=== PATIENT | female | born 1940 | race Two or more races ===

== ENCOUNTER 2023-10-11 07:39 | Inpatient (IN) | payer OTHER ==
[2023-10-11] MEDS ORDERED: morphine SULFATE 4 MG/ML VIAL ONE (08:49)
[2023-10-11 09:10] LABS: BASO % 0.8 % (0-2.0); EOS % 3.4 % (0-4.5); HEMATOCRIT 36.7 % (32.4-45.2); HEMOGLOBIN 12.7 GM/dL (10.7-15.3); LYMPH % 13.7 % (8-40); MCH 31.1 pg (25.7-33.7); MCHC 34.7 g/dl (32.0-36.0); MEAN CELL VOLUME 89.6 fl (80-96); MEAN PLT VOLUME 7.6 fl (7.5-11.1); MONO % 8.1 % (3.8-10.2); PLATELET COUNT 278 10^3/uL (134-434); RBC 4.09 M/mm3 (3.60-5.2); RDW 15.3 % (11.6-15.6)
[2023-10-11 09:12] LABS: ACTIVATED PTT 29.1 SECONDS (25.2-36.5); INR 1.16 (0.83-1.09); PROTHROMBIN TIME (PATIENT) 13.4 SEC (9.7-13.0)
[2023-10-11] MEDS: morphine CARPU-JECT 4 MG/1 ML DISP.SYRIN IVPUSH ONE (09:17)
[2023-10-11 09:26] LABS: POTASSIUM 4.7 mmol/L (3.5-5.1)
[2023-10-11 09:28] LABS: ALBUMIN 3.3 g/dl (3.4-5.0); BLOOD UREA NITROGEN 33.7 mg/dL (7-18); CALCIUM 9.2 mg/dL (8.5-10.1)
[2023-10-11 09:31] LABS: CREATININE 1.4 mg/dL (0.55-1.3)
[2023-10-11 09:33] LABS: TOT PROT 6.8 g/dl (6.4-8.2)
[2023-10-11] MEDS ORDERED: HEPARIN NA (PORCINE) 5,000 UNITS/ML 1ML VIAL IVPUSH PRN ×2 (11:50)
[2023-10-11] MEDS ORDERED: HEPARIN INFUSION - 25,000 UNITS/500 ML INFUS.BAG IVPB ONE (12:11)
[2023-10-11] MEDS: HEPARIN - 25,000 UNIT in SODIUM CHLORIDE 495 ML IV SCH (12:15)
[2023-10-11] MEDS: HEPARIN INFUSION - 25,000 UNITS/500 ML INFUS.BAG IVPB SCH (12:58)
[2023-10-11] MEDS ORDERED: SACUBITRIL/VALSARTAN 24 MG-26 MG TABLET ONE (21:08)
[2023-10-11] MEDS: SACUBITRIL/VALSARTAN 24 MG-26 MG TABLET PO SCH (21:17)
[2023-10-11] MEDS: INSULIN ASPART SLIDING SCALE (NOVOLOG) 1 VIAL SQ SCH (21:46)
[2023-10-12 02:42] VITALS: BMI 24.1
[2023-10-12] MEDS: FUROSEMIDE 40 MG TABLET (FP) PO SCH (09:25)
[2023-10-12] MEDS: SPIRONOLACTONE 25 MG TABLET PO SCH (09:25)
[2023-10-12 10:30] LABS: BASO % 0.2 % (0-2.0); EOS % 4.8 % (0-4.5); HEMATOCRIT 38.4 % (32.4-45.2); HEMOGLOBIN 12.7 GM/dL (10.7-15.3); LYMPH % 7.5 % (8-40); MCH 30.2 pg (25.7-33.7); MEAN CELL VOLUME 91.5 fl (80-96); MEAN PLT VOLUME 7.9 fl (7.5-11.1); MONO % 2.6 % (3.8-10.2); NEUT % 84.9 % (42.8-82.8); PLATELET COUNT 312 10^3/uL (134-434); RDW 15.5 % (11.6-15.6); WHITE BLOOD COUNT 12.9 K/mm3 (4.0-10.0)
[2023-10-12 10:48] LABS: POTASSIUM 4.4 mmol/L (3.5-5.1)
[2023-10-12 10:52] LABS: BLOOD UREA NITROGEN 37.5 mg/dL (7-18); CALCIUM 8.8 mg/dL (8.5-10.1)
[2023-10-12 10:53] LABS: MAGNESIUM 2.1 mg/dL (1.8-2.4)
[2023-10-12 10:55] LABS: CREATININE 2.1 mg/dL (0.55-1.3); PHOSPHOROUS 3.2 mg/dL (2.5-4.9)
[2023-10-12 10:57] LABS: CHOLESTEROL 89 mg/dL (50-200)
[2023-10-12 10:58] LABS: LDL CHOLESTEROL (ONLY SJRH) 37 mg/dL (5-100)
[2023-10-12 11:01] LABS: HDL CHOLESTEROL 46 mg/dL (40-60)
[2023-10-12] MEDS: SODIUM CHLORIDE 0.45% 1,000 ML IV SCH (16:33)
[2023-10-12] MEDS: morphine SULFATE 4 MG/ML VIAL IVPUSH PRN (22:00)
[2023-10-13 10:42] LABS: HEMATOCRIT 36.3 % (32.4-45.2); HEMOGLOBIN 12.4 GM/dL (10.7-15.3); MCH 30.9 pg (25.7-33.7); MCHC 34.1 g/dl (32.0-36.0); MEAN CELL VOLUME 90.6 fl (80-96); PLATELET COUNT 301 10^3/uL (134-434); RBC 4.01 M/mm3 (3.60-5.2); RDW 15.5 % (11.6-15.6); WHITE BLOOD COUNT 8.6 K/mm3 (4.0-10.0)
[2023-10-13 10:54] LABS: POTASSIUM 4.4 mmol/L (3.5-5.1)
[2023-10-13 11:03] LABS: CALCIUM 9.3 mg/dL (8.5-10.1)
[2023-10-13 11:04] LABS: BLOOD UREA NITROGEN 51.2 mg/dL (7-18)
[2023-10-13 11:06] LABS: CREATININE 3.9 mg/dL (0.55-1.3)
[2023-10-13] MEDS ORDERED: INSULIN ASPART SLIDING SCALE (NOVOLOG) 1 VIAL SQ ONE (11:45)
[2023-10-13] MEDS ORDERED: POTASSIUM CHLORIDE 10 MEQ in SODIUM CHLORIDE 0.45% 1,000 ML IVPB SCH (12:30)
[2023-10-13] MEDS: SODIUM CHLORIDE 0.45% 1,000 ML IV SCH (12:44)
[2023-10-13] MEDS: ACETAMINOPHEN 325 MG TABLET (FP) PO PRN (22:12)
[2023-10-14] MEDS: CLOPIDOGREL BISULFATE 75 MG TABLET (FP) PO SCH (10:37)
[2023-10-14] MEDS: ASPIRIN 81 MG CHEWABLE TABLETS PO SCH (10:37)
[2023-10-14] MEDS ORDERED: LIDOCAINE HCL 1%, 10 MG/ML (20ML VIAL) ONE (12:26)
[2023-10-14] MEDS ORDERED: HEPARIN NA (PORCINE) 5,000 UNITS/ML 1ML VIAL ONE (12:26)
[2023-10-14] MEDS ORDERED: PROPOFOL 40 ML ONE (12:48)
[2023-10-14] MEDS ORDERED: SUCCINYLCHOLINE CHLORIDE 200 MG/10 ML SYRINGE ONE (12:48)
[2023-10-14] MEDS ORDERED: MIDAZOLAM HCL 2 MG/2 ML SINGLE DOSE VIAL ONE (13:15)
[2023-10-14] MEDS ORDERED: ONDANSETRON 4 MG/2 ML VIAL ONE (13:17)
[2023-10-14] MEDS ORDERED: LIDOCAINE HCL/PF 2% SDV 5ML VIAL ONE (13:17)
[2023-10-14] MEDS ORDERED: SEVOFLURANE 250 ML BTL ONE (13:40)
[2023-10-14] MEDS: ceFAZolin 2 GRAM PREMIX BAG IVPB ONE (13:45)
[2023-10-14] MEDS ORDERED: ceFAZolin SODIUM 1 GM VIAL ONE (13:46)
[2023-10-14] MEDS: LIDOCAINE HCL 1%, 10 MG/ML (20ML VIAL) INF ONE ×2 (13:54)
[2023-10-14] MEDS: IOHEXOL 300 MG/ML INFUS..BTL IV ONE (13:55)
[2023-10-14] MEDS ORDERED: ONDANSETRON 4 MG/2 ML VIAL IVPUSH PRN ×2 (15:06→15:54)
[2023-10-14] MEDS: SODIUM CHLORIDE 1,000 ML IV SCH ×2 (15:56→16:15)
[2023-10-14] MEDS: INSULIN ASPART SLIDING SCALE (NOVOLOG) 1 VIAL SQ SCH (17:21)
[2023-10-14] MEDS: CLOPIDOGREL BISULFATE 75 MG TABLET (FP) PO ONE (17:21)
[2023-10-14] MEDS ORDERED: INSULIN ASPART SLIDING SCALE (NOVOLOG) 1 VIAL SQ ONE (17:34)
[2023-10-14] MEDS: SACUBITRIL/VALSARTAN 24 MG-26 MG TABLET PO SCH (21:18)
[2023-10-15] MEDS: morphine SULFATE 4 MG/ML VIAL IVPUSH PRN (02:12)
[2023-10-15] MEDS: ACETAMINOPHEN 325 MG TABLET (FP) PO PRN (06:03)
[2023-10-15] MEDS: SPIRONOLACTONE 25 MG TABLET PO SCH (10:24)
[2023-10-15] MEDS: ASPIRIN 81 MG CHEWABLE TABLETS PO SCH (10:24)
[2023-10-15] MEDS: CLOPIDOGREL BISULFATE 75 MG TABLET (FP) PO SCH (10:24)
[2023-10-15] MEDS: metoPROLOL SUCCINATE 25 MG TAB.SR.24H (FP) PO SCH (10:24)
[2023-10-15] MEDS: FUROSEMIDE 40 MG TABLET (FP) PO SCH (10:24)
[2023-10-15 11:34] LABS: POTASSIUM 4.4 mmol/L (3.5-5.1)
[2023-10-15 11:36] LABS: CALCIUM 8.4 mg/dL (8.5-10.1)
[2023-10-15 11:37] LABS: ALBUMIN 2.8 g/dl (3.4-5.0); BLOOD UREA NITROGEN 55.9 mg/dL (7-18)
[2023-10-15 11:40] LABS: CREATININE 3.3 mg/dL (0.55-1.3)
[2023-10-15 11:41] LABS: BILIRUBIN,TOTAL 0.9 mg/dL (0.2-1); TOT PROT 5.8 g/dl (6.4-8.2)
[2023-10-15] MEDS: DOCUSATE SODIUM 100 MG CAPSULE (FP) PO SCH (21:45)
[2023-10-15] MEDS: oxyCODONE HCL 5 MG TABLET PO PRN (22:00)
[2023-10-17] MEDS: diphenhydrAMINE HCL 25 MG CAPSULE (FP) PO PRN (09:38)
[2023-10-18 11:18] LABS: HEMOGLOBIN 11.5 GM/dL (10.7-15.3); MCH 31.6 pg (25.7-33.7); MCHC 34.9 g/dl (32.0-36.0); MEAN CELL VOLUME 90.6 fl (80-96); MEAN PLT VOLUME 6.7 fl (7.5-11.1); PLATELET COUNT 324 10^3/uL (134-434); RBC 3.64 M/mm3 (3.60-5.2); RDW 15.9 % (11.6-15.6); WHITE BLOOD COUNT 6.8 K/mm3 (4.0-10.0)
[2023-10-18 11:57] LABS: POTASSIUM 4.7 mmol/L (3.5-5.1)
[2023-10-18 12:01] LABS: BLOOD UREA NITROGEN 38.1 mg/dL (7-18); CALCIUM 8.7 mg/dL (8.5-10.1)
[2023-10-18 12:02] LABS: ALBUMIN 2.7 g/dl (3.4-5.0)
[2023-10-18 12:03] LABS: CREATININE 2.1 mg/dL (0.55-1.3)
[2023-10-18 12:05] LABS: BILIRUBIN,TOTAL 0.8 mg/dL (0.2-1); TOT PROT 6.5 g/dl (6.4-8.2)
[2023-10-18 19:34] VITALS: RESP 18
[2023-10-19] MEDS: APIXABAN 2.5 MG TABLET PO SCH (09:57)
[2023-10-19] MEDS: POLYETHYLENE GLYCOL (HEALTHYLAX) 3350 17 GM PACKET PO SCH (13:48)
[2023-10-20 10:21] LABS: POTASSIUM 4.7 mmol/L (3.5-5.1)
[2023-10-20 10:36] LABS: ALBUMIN 2.8 g/dl (3.4-5.0); CALCIUM 8.7 mg/dL (8.5-10.1)
[2023-10-20 10:39] LABS: CREATININE 1.8 mg/dL (0.55-1.3)
[2023-10-20 10:42] LABS: BILIRUBIN,TOTAL 0.7 mg/dL (0.2-1); TOT PROT 6.2 g/dl (6.4-8.2)
[2023-10-20] MEDS: traMADol HCL 50 MG TABLET PO PRN (17:00)
[2023-10-20] MEDS ORDERED: INSULIN ASPART SLIDING SCALE (NOVOLOG) 1 VIAL SQ ONE (18:01)
[2023-10-21 09:26] VITALS: BP 113/61; PULSE 63; TEMP 98.1
== END 2023-10-21 13:31 | disposition home health service (06) | DRG 253 ==
LOC: JER 07:39 → JERBED 13:24 → OBSVTOIN 14:56 → J6S 10-12 01:50
PROVIDERS: ADMIT Internal Medicine; ATTEND Internal Medicine
PROC: 047K3DZ Dilation of Right Femoral Artery with Intraluminal Device, Percutaneous Approach (ICD-10-PCS; principal; 2023-10-11)
PROC: 047T3DZ Dilation of Right Peroneal Artery with Intraluminal Device, Percutaneous Approach (ICD-10-PCS; 2023-10-11)
PROC: B40DYZZ Plain Radiography of Aorta and Bilateral Lower Extremity Arteries using Other Contrast (ICD-10-PCS; 2023-10-11)
PROC: B40FYZZ Plain Radiography of Right Lower Extremity Arteries using Other Contrast (ICD-10-PCS; 2023-10-11)
DX: E11.51 Type 2 diabetes mellitus with diabetic peripheral angiopathy without gangrene (principal); I70.221 Atherosclerosis of native arteries of extremities with rest pain, right leg; I13.0 Hypertensive heart and chronic kidney disease with heart failure and stage 1 through stage 4 chronic kidney disease, or unspecified chronic kidney disease; I50.22 Chronic systolic (congestive) heart failure; N17.9 Acute kidney failure, unspecified; I25.10 Atherosclerotic heart disease of native coronary artery without angina pectoris; E11.22 Type 2 diabetes mellitus with diabetic chronic kidney disease; N18.30 Chronic kidney disease, stage 3 unspecified; I70.1 Atherosclerosis of renal artery; Z95.5 Presence of coronary angioplasty implant and graft
CPT/HCPCS: 36415; 73630-TC-RT-FY; 73706-TC-RT; 76000-TC-FY; 80048; 80053; 80061; 82962; 83036; 83605; 83735; 84100; 84443; 85025; 85027; 85610; 85730; 93005; 93010; 94760; 97116-GP; 97162-GP; 99285-25; C1725; C1876; G0378; J1644

== ENCOUNTER 2024-03-03 17:09 | Inpatient (IN) | payer OTHER ==
[2024-03-03] MEDS ORDERED: ACETAMINOPHEN INJECTION 100 ML IVPB ONE (18:20)
[2024-03-03] MEDS: ACETAMINOPHEN 1000 MG/100 ML BAG IVPB ONE (18:22)
[2024-03-03 18:27] LABS: BASO % 1.5 % (0-2.0); EOS % 5.3 % (0-4.5); HEMATOCRIT 30.9 % (32.4-45.2); HEMOGLOBIN 10.3 GM/dL (10.7-15.3); LYMPH % 18.5 % (8-40); MCH 31.3 pg (25.7-33.7); MCHC 33.5 g/dl (32.0-36.0); MEAN CELL VOLUME 93.4 fl (80-96); MEAN PLT VOLUME 7.3 fl (7.5-11.1); MONO % 9.5 % (3.8-10.2); NEUT % 65.2 % (42.8-82.8); PLATELET COUNT 272 10^3/uL (134-434); RBC 3.31 M/mm3 (3.60-5.2); RDW 13.6 % (11.6-15.6)
[2024-03-03 18:33] LABS: INR 1.32 (0.83-1.09); PROTHROMBIN TIME (PATIENT) 14.8 SEC (9.7-13.0)
[2024-03-03 18:36] LABS: ACTIVATED PTT 27.4 SECONDS (25.2-36.5)
[2024-03-03 18:51] LABS: POTASSIUM 5.5 mmol/L (3.5-5.1)
[2024-03-03 18:53] LABS: ALBUMIN 3.6 g/dl (3.4-5.0); BLOOD UREA NITROGEN 42.2 mg/dL (7-18); CALCIUM 9.3 mg/dL (8.5-10.1)
[2024-03-03 18:57] LABS: CREATININE 1.2 mg/dL (0.55-1.3)
[2024-03-03 18:58] LABS: BILIRUBIN,TOTAL 1.3 mg/dL (0.2-1); TOT PROT 6.9 g/dl (6.4-8.2)
[2024-03-03] MEDS ORDERED: morphine SULFATE 4 MG/ML VIAL ONE (19:38)
[2024-03-03] MEDS: morphine CARPU-JECT 4 MG/1 ML DISP.SYRIN IVPUSH ONE (19:58)
[2024-03-03 20:32] LABS: POTASSIUM 4.6 mmol/L (3.5-5.1)
[2024-03-03 20:34] LABS: BLOOD UREA NITROGEN 39.5 mg/dL (7-18); CALCIUM 8.9 mg/dL (8.5-10.1)
[2024-03-03 20:38] LABS: CREATININE 1.1 mg/dL (0.55-1.3)
[2024-03-03] MEDS ORDERED: ACETAMINOPHEN 325 MG TABLET (FP) PO PRN (21:37)
[2024-03-03] MEDS ORDERED: DOCUSATE SODIUM 100 MG CAPSULE (FP) PO PRN (21:37)
[2024-03-04] MEDS ORDERED: ACETAMINOPHEN INJECTION 100 ML IVPB ONE (01:44)
[2024-03-04] MEDS ORDERED: INSULIN ASPART SLIDING SCALE (NOVOLOG) 1 VIAL SQ ONE ×2 (01:46→17:17)
[2024-03-04] MEDS: INSULIN ASPART SLIDING SCALE (NOVOLOG) 1 VIAL SQ SCH (02:04)
[2024-03-04] MEDS: DEXTROSE 5%-0.45% SALINE 1,000 ML IV SCH (02:06)
[2024-03-04] MEDS: ACETAMINOPHEN 1000 MG/100 ML BAG IVPB PRN (02:13)
[2024-03-04 04:00] LABS: POTASSIUM 4.8 mmol/L (3.5-5.1)
[2024-03-04 04:01] LABS: CALCIUM 8.9 mg/dL (8.5-10.1)
[2024-03-04 04:02] LABS: BLOOD UREA NITROGEN 39.4 mg/dL (7-18)
[2024-03-04 04:05] LABS: CREATININE 1.3 mg/dL (0.55-1.3)
[2024-03-04 06:13] LABS: BASO % 0.9 % (0-2.0); EOS % 6.8 % (0-4.5); HEMATOCRIT 28.4 % (32.4-45.2); HEMOGLOBIN 9.6 GM/dL (10.7-15.3); LYMPH % 23.7 % (8-40); MCH 31.9 pg (25.7-33.7); MCHC 33.8 g/dl (32.0-36.0); MEAN CELL VOLUME 94.3 fl (80-96); MEAN PLT VOLUME 7.3 fl (7.5-11.1); MONO % 12.4 % (3.8-10.2); NEUT % 56.2 % (42.8-82.8); PLATELET COUNT 238 10^3/uL (134-434); RBC 3.02 M/mm3 (3.60-5.2); RDW 13.4 % (11.6-15.6); WHITE BLOOD COUNT 6.6 K/mm3 (4.0-10.0)
[2024-03-04 06:25] LABS: POTASSIUM 4.2 mmol/L (3.5-5.1)
[2024-03-04 06:28] LABS: CALCIUM 8.4 mg/dL (8.5-10.1)
[2024-03-04 06:31] LABS: CREATININE 1.2 mg/dL (0.55-1.3)
[2024-03-04 08:26] VITALS: BMI 25.3
[2024-03-04] MEDS: ACETAMINOPHEN 325 MG TABLET (FP) PO PRN (20:25)
[2024-03-05] MEDS ORDERED: ACETAMINOPHEN 325 MG TABLET (FP) PO PRN (00:01)
[2024-03-05 08:33] LABS: EOS % 6.7 % (0-4.5); HEMATOCRIT 28.8 % (32.4-45.2); HEMOGLOBIN 9.9 GM/dL (10.7-15.3); LYMPH % 21.1 % (8-40); MCH 31.9 pg (25.7-33.7); MCHC 34.4 g/dl (32.0-36.0); MEAN CELL VOLUME 92.7 fl (80-96); MEAN PLT VOLUME 7.3 fl (7.5-11.1); MONO % 10.4 % (3.8-10.2); NEUT % 60.8 % (42.8-82.8); PLATELET COUNT 264 10^3/uL (134-434); RBC 3.11 M/mm3 (3.60-5.2); RDW 13.1 % (11.6-15.6); WHITE BLOOD COUNT 6.7 K/mm3 (4.0-10.0)
[2024-03-05 08:39] LABS: POTASSIUM 4.4 mmol/L (3.5-5.1)
[2024-03-05 09:05] LABS: BLOOD UREA NITROGEN 33.2 mg/dL (7-18)
[2024-03-05 09:06] LABS: CALCIUM 8.7 mg/dL (8.5-10.1)
[2024-03-05 09:07] LABS: ALBUMIN 3.3 g/dl (3.4-5.0)
[2024-03-05 09:09] LABS: BILIRUBIN,TOTAL 1.6 mg/dL (0.2-1)
[2024-03-05 09:10] LABS: CREATININE 1.2 mg/dL (0.55-1.3)
[2024-03-05 09:11] LABS: TOT PROT 6.1 g/dl (6.4-8.2)
[2024-03-05] MEDS: SACUBITRIL/VALSARTAN 24 MG-26 MG TABLET PO SCH (10:54)
[2024-03-05] MEDS: ASPIRIN 81 MG CHEWABLE TABLETS PO SCH (10:58)
[2024-03-05] MEDS ORDERED: INSULIN ASPART SLIDING SCALE (NOVOLOG) 1 VIAL SQ ONE (18:23)
[2024-03-05] MEDS: ATORVASTATIN CA 80 MG TABLET (FP) PO SCH (21:15)
[2024-03-05] MEDS: EZETIMIBE 10 MG TABLET (FP) PO SCH (21:15)
[2024-03-06] MEDS: diphenhydrAMINE HCL 25 MG CAPSULE (FP) PO ONE (04:12)
[2024-03-06] MEDS: methylPREDNISolone NA SUCC 40 MG/1 ML VIAL IVPUSH SCH (09:58)
[2024-03-07] MEDS: glyBURIDE 2.5 MG TABLET PO ONE (10:21)
[2024-03-07] MEDS: EMPAGLIFLOZIN (JARDIANCE) 10 MG TABLET PO SCH (10:22)
[2024-03-07] MEDS: RIVAROXABAN 2.5 MG TABLET PO SCH (22:28)
[2024-03-07] MEDS: diphenhydrAMINE HCL 25 MG CAPSULE (FP) PO ONE (22:31)
[2024-03-07 23:25] VITALS: RESP 17
[2024-03-07] MEDS: SODIUM CHLORIDE NASAL SPRAY 44 ML BOTTLE NS PRN (23:56)
[2024-03-08] MEDS: glyBURIDE 2.5 MG TABLET PO SCH (06:42)
[2024-03-08 07:05] VITALS: BP 179/72; PULSE 69; TEMP 95.5
[2024-03-08] MEDS: EMPAGLIFLOZIN (JARDIANCE) 25 MG TABLET PO SCH (13:30)
== END 2024-03-08 14:58 | disposition home health service (06) | DRG 300 ==
LOC: JER 17:09 → JERBED 21:39 → J5S 03-04 06:53
PROVIDERS: ADMIT Internal Medicine; ATTEND Family Medicine
DX: I73.9 Peripheral vascular disease, unspecified (principal); I13.0 Hypertensive heart and chronic kidney disease with heart failure and stage 1 through stage 4 chronic kidney disease, or unspecified chronic kidney disease; I50.22 Chronic systolic (congestive) heart failure; N18.4 Chronic kidney disease, stage 4 (severe); I25.10 Atherosclerotic heart disease of native coronary artery without angina pectoris; E11.9 Type 2 diabetes mellitus without complications; E78.5 Hyperlipidemia, unspecified; T78.40XA Allergy, unspecified, initial encounter; Y92.89 Other specified places as the place of occurrence of the external cause
CPT/HCPCS: 36415; 71046-TC-FY; 75635-TC; 80048; 80053; 80061; 82272; 82607; 82728; 82962; 83036; 83540; 83550; 83735; 84443; 85025; 85610; 85730; 86850; 86900; 86901; 93005; 93010; 99285-25; J0131; Q9967

== ENCOUNTER 2024-04-28 14:48 | Inpatient (IN) | payer OTHER ==
[2024-04-28] MEDS ORDERED: PIPERACILLIN/TAZOB 4.5 GM 4.5 GM/100 ML BAG IVPB ONE (17:30)
[2024-04-28] MEDS ORDERED: KETOROLAC TROMETHAMINE 15 MG/ML VIAL ONE (17:30)
[2024-04-28] MEDS ORDERED: VANCOMYCIN 1 GRAM (PRE-DOCKED) 1,000 MG/250 ML BAG IVPB ONE ×2 (17:31→19:06)
[2024-04-28] MEDS ORDERED: HYDROmorphone HCL CARPU-JECT 2 MG/1 ML DISP.SYRIN ONE (17:55)
[2024-04-28] MEDS: HYDROmorphone HCl 2 MG/ML VIAL IVPUSH ONE (18:05)
[2024-04-28] MEDS: KETOROLAC TROMETHAMINE 15 MG/ML VIAL IVPUSH ONE (18:05)
[2024-04-28] MEDS: PIPERACILLIN/TAZOB 4.5 GM 4.5 GM in DEXTROSE 5%-WATER 100 ML IVPB ONE (18:06)
[2024-04-28] MEDS: VANCOMYCIN 1,000 MG in DEXTROSE 5%-WATER - 250 ML IVPB ONE (19:15)
[2024-04-28] MEDS: ACETAMINOPHEN 1000 MG/100 ML BAG IVPB ONE (19:16)
[2024-04-28 20:43] LABS: BASO % 1.2 % (0-2.0); EOS % 3.8 % (0-4.5); HEMATOCRIT 31.5 % (32.4-45.2); HEMOGLOBIN 10.6 GM/dL (10.7-15.3); LYMPH % 22.8 % (8-40); MCH 31.4 pg (25.7-33.7); MCHC 33.8 g/dl (32.0-36.0); MEAN PLT VOLUME 8.5 fl (7.5-11.1); MONO % 8.9 % (3.8-10.2); NEUT % 63.3 % (42.8-82.8); PLATELET COUNT 308 10^3/uL (134-434); RBC 3.39 M/mm3 (3.60-5.2); RDW 13.5 % (11.6-15.6); WHITE BLOOD COUNT 7.5 K/mm3 (4.0-10.0)
[2024-04-28 21:11] LABS: URIC ACID 4.1 mg/dL (2.6-7.2)
[2024-04-28 21:14] LABS: CHLORIDE 106 mmol/L (98-107); SODIUM 135 mmol/L (136-145)
[2024-04-28 21:17] LABS: ALBUMIN 3.4 g/dl (3.4-5.0); CALCIUM 8.8 mg/dL (8.5-10.1)
[2024-04-28 21:18] LABS: BLOOD UREA NITROGEN 42.7 mg/dL (7-18); CO2 22 mmol/L (21-32); GLUCOSE,RANDOM 156 mg/dL (74-106)
[2024-04-28 21:18] LABS: CHLORIDE 105 mmol/L (98-107); POTASSIUM 4.6 mmol/L (3.5-5.1); SODIUM 136 mmol/L (136-145)
[2024-04-28 21:20] LABS: ANION GAP 7 mmol/L (4-13); POTASSIUM 8.3 mmol/L (3.5-5.1)
[2024-04-28 21:20] LABS: CALCIUM 8.5 mg/dL (8.5-10.1)
[2024-04-28 21:21] LABS: ALBUMIN 3.3 g/dl (3.4-5.0); ANION GAP 9 mmol/L (4-13); BLOOD UREA NITROGEN 41.9 mg/dL (7-18); CO2 22 mmol/L (21-32); GLUCOSE,RANDOM 268 mg/dL (74-106)
[2024-04-28 21:21] LABS: CREATININE 1.4 mg/dL (0.55-1.3); SGOT/AST 108 U/L (15-37); SGPT/ALT 34 U/L (13-61)
[2024-04-28 21:22] LABS: BILIRUBIN,TOTAL 0.8 mg/dL (0.2-1); TOT PROT 7.5 g/dl (6.4-8.2)
[2024-04-28 21:23] LABS: URIC ACID 4.1 mg/dL (2.6-7.2)
[2024-04-28 21:24] LABS: CREATININE 1.5 mg/dL (0.55-1.3); SGOT/AST 52 U/L (15-37); SGPT/ALT 44 U/L (13-61)
[2024-04-28 21:24] LABS: ALK PHOS 78 U/L (45-117)
[2024-04-28 21:25] LABS: BILIRUBIN,TOTAL 0.8 mg/dL (0.2-1); TOT PROT 6.5 g/dl (6.4-8.2)
[2024-04-28 21:26] LABS: ALK PHOS 81 U/L (45-117)
[2024-04-28] MEDS: ACETAMINOPHEN 325 MG TABLET (FP) PO PRN (23:49)
[2024-04-29 08:39] VITALS: RESP 18
[2024-04-29 09:07] LABS: INR 1.2 (0.83-1.09); PROTHROMBIN TIME (PATIENT) 13.7 SEC (9.7-13.0)
[2024-04-29 09:10] LABS: ACTIVATED PTT 31.6 SECONDS (25.2-36.5); BASO % 0.8 % (0-2.0); EOS % 5.1 % (0-4.5); HEMATOCRIT 30.6 % (32.4-45.2); HEMOGLOBIN 10.6 GM/dL (10.7-15.3); MCH 31.7 pg (25.7-33.7); MCHC 34.6 g/dl (32.0-36.0); MEAN CELL VOLUME 91.6 fl (80-96); MEAN PLT VOLUME 7.7 fl (7.5-11.1); MONO % 8.3 % (3.8-10.2); NEUT % 69.8 % (42.8-82.8); PLATELET COUNT 261 10^3/uL (134-434); RBC 3.34 M/mm3 (3.60-5.2); RDW 13.1 % (11.6-15.6); WHITE BLOOD COUNT 6.2 K/mm3 (4.0-10.0)
[2024-04-29 09:36] LABS: BLOOD UREA NITROGEN 38.2 mg/dL (7-18)
[2024-04-29 09:37] LABS: CALCIUM 8.9 mg/dL (8.5-10.1)
[2024-04-29 09:38] LABS: CREATININE 1.4 mg/dL (0.55-1.3)
[2024-04-29] MEDS: SACUBITRIL/VALSARTAN 24 MG-26 MG TABLET PO SCH (09:46)
[2024-04-29] MEDS: ASPIRIN 81 MG CHEWABLE TABLETS PO SCH (09:46)
[2024-04-29] MEDS: RIVAROXABAN 2.5 MG TABLET PO SCH (09:46)
[2024-04-29] MEDS: glyBURIDE 2.5 MG TABLET PO SCH (09:47)
[2024-04-29] MEDS: EMPAGLIFLOZIN (JARDIANCE) 25 MG TABLET PO SCH (09:47)
[2024-04-29 09:49] LABS: ERYTHROCYTE SEDIMENTATION RATE 33 mm/hr (0-30)
[2024-04-29] MEDS: INSULIN ASPART SLIDING SCALE (NOVOLOG) 1 VIAL SQ SCH (11:50)
[2024-04-29] MEDS: IRON SUCROSE INJECTION 200 MG in SODIUM CHLORIDE 100 ML IVPB ONE (14:53)
[2024-04-29] MEDS ORDERED: VANCOMYCIN 750 MG in DEXTROSE 5%-WATER - 150 ML IVPB SCH (19:00)
[2024-04-29] MEDS ORDERED: VANCOMYCIN/WATER FOR INJ (PEG) 750 MG/150 ML BAG IVPB SCH (19:00)
[2024-04-29] MEDS: ATORVASTATIN CA 80 MG TABLET (FP) PO SCH (21:44)
[2024-04-29] MEDS: EZETIMIBE 10 MG TABLET (FP) PO SCH (21:45)
[2024-04-29 21:52] VITALS: BMI 25.3
[2024-04-30 01:14] LABS: EPI CELLS 8 /uL (0-25.1); HYALINE CASTS 0 /uL (0-3.1); PH,URINE 5.5 (5.0-8.0); URINE APPEARANCE CLEAR; URINE BACTERIA 4 /uL (0-1359); URINE BILIRUBIN NEGATIVE (NEGATIVE); URINE COLOR YELLOW; URINE GLUCOSE (UA) 3+ (NEGATIVE); URINE KETONE NEGATIVE (NEGATIVE); URINE LEUK ESTERASE NEGATIVE (NEGATIVE); URINE NITRITE NEGATIVE (NEGATIVE); URINE PROTEIN 1+ (NEGATIVE); URINE RBC 9 /uL (0-23.9); URINE UROBILINOGEN 0.2 mg/dL (0.2-1.0); URINE WBC 35 /uL (0-25.8)
[2024-04-30 08:16] LABS: HEMATOCRIT 30.6 % (32.4-45.2); HEMOGLOBIN 10.3 GM/dL (10.7-15.3); MCH 31.2 pg (25.7-33.7); MCHC 33.8 g/dl (32.0-36.0); MEAN CELL VOLUME 92.5 fl (80-96); MEAN PLT VOLUME 7.4 fl (7.5-11.1); PLATELET COUNT 273 10^3/uL (134-434); RBC 3.31 M/mm3 (3.60-5.2); WHITE BLOOD COUNT 4.5 K/mm3 (4.0-10.0)
[2024-04-30 08:17] LABS: POTASSIUM 4.3 mmol/L (3.5-5.1)
[2024-04-30 08:20] LABS: ALBUMIN 3.2 g/dl (3.4-5.0)
[2024-04-30 08:21] LABS: BLOOD UREA NITROGEN 36.8 mg/dL (7-18); CALCIUM 8.9 mg/dL (8.5-10.1)
[2024-04-30 08:23] LABS: CREATININE 1.2 mg/dL (0.55-1.3)
[2024-04-30 08:24] LABS: BILIRUBIN,TOTAL 1.1 mg/dL (0.2-1)
[2024-04-30 08:26] LABS: TOT PROT 6.1 g/dl (6.4-8.2)
[2024-05-01] MEDS: sitaGLIPtin PHOSPHATE 50 MG TABLET PO SCH (06:05)
[2024-05-01] MEDS: GENTAMICIN SO4 0.1% TOPICAL OINTMENT 15 GM/TUBE TUBE TP ONE (21:41)
[2024-05-02 09:56] LABS: BASO % 1.6 % (0-2.0); EOS % 4.8 % (0-4.5); HEMATOCRIT 31.7 % (32.4-45.2); HEMOGLOBIN 10.6 GM/dL (10.7-15.3); LYMPH % 24.7 % (8-40); MCH 31.3 pg (25.7-33.7); MCHC 33.5 g/dl (32.0-36.0); MEAN CELL VOLUME 93.4 fl (80-96); MEAN PLT VOLUME 7.8 fl (7.5-11.1); MONO % 8.3 % (3.8-10.2); NEUT % 60.6 % (42.8-82.8); PLATELET COUNT 298 10^3/uL (134-434); WHITE BLOOD COUNT 5.3 K/mm3 (4.0-10.0)
[2024-05-02 10:13] LABS: POTASSIUM 4.7 mmol/L (3.5-5.1)
[2024-05-02 10:20] LABS: ALBUMIN 3.2 g/dl (3.4-5.0); BLOOD UREA NITROGEN 39.6 mg/dL (7-18); CALCIUM 8.8 mg/dL (8.5-10.1)
[2024-05-02 10:24] LABS: CREATININE 1.3 mg/dL (0.55-1.3)
[2024-05-02 10:26] LABS: TOT PROT 6.4 g/dl (6.4-8.2)
[2024-05-02 12:29] VITALS: BP 125/64; PULSE 62; TEMP 97.9
== END 2024-05-02 13:22 | disposition home or self-care (01) | DRG 300 ==
LOC: JER 14:48 → JERBED 17:47 → J5S 22:59
PROVIDERS: ADMIT Internal Medicine; ATTEND Family Medicine
DX: E11.51 Type 2 diabetes mellitus with diabetic peripheral angiopathy without gangrene (principal); I13.0 Hypertensive heart and chronic kidney disease with heart failure and stage 1 through stage 4 chronic kidney disease, or unspecified chronic kidney disease; I50.22 Chronic systolic (congestive) heart failure; I25.10 Atherosclerotic heart disease of native coronary artery without angina pectoris; E78.5 Hyperlipidemia, unspecified; E11.22 Type 2 diabetes mellitus with diabetic chronic kidney disease; N18.9 Chronic kidney disease, unspecified; I70.201 Unspecified atherosclerosis of native arteries of extremities, right leg; Z95.5 Presence of coronary angioplasty implant and graft; S90.31XA Contusion of right foot, initial encounter; X58.XXXA Exposure to other specified factors, initial encounter; Y93.9 Activity, unspecified; Y92.9 Unspecified place or not applicable; Y99.9 Unspecified external cause status
CPT/HCPCS: 36415; 73630-TC-LT; 73700-TC-RT; 76775-TC; 76856-TC; 80048; 80053; 81003; 82043; 82570; 82728; 82962; 83036; 83540; 83550; 84550; 85025; 85027; 85610; 85651; 85730; 86140; 86850; 86900; 86901; 93005; 93010; 93970-TC; 99285-25; J1756

== ENCOUNTER 2024-06-22 20:55 | Inpatient (IN) | payer OTHER ==
[2024-06-22] MEDS ORDERED: ACETAMINOPHEN INJECTION 100 ML ONE (22:42)
[2024-06-22] MEDS: ACETAMINOPHEN 1000 MG/100 ML BAG IVPB ONE (23:09)
[2024-06-22 23:12] LABS: BASO % 1.2 % (0-2.0); EOS % 4.4 % (0-4.5); HEMATOCRIT 31.9 % (32.4-45.2); HEMOGLOBIN 10.8 GM/dL (10.7-15.3); MCH 30.6 pg (25.7-33.7); MCHC 33.7 g/dl (32.0-36.0); MEAN CELL VOLUME 90.6 fl (80-96); MEAN PLT VOLUME 7.4 fl (7.5-11.1); MONO % 7.7 % (3.8-10.2); NEUT % 68.7 % (42.8-82.8); PLATELET COUNT 396 10^3/uL (134-434); RBC 3.52 M/mm3 (3.60-5.2); WHITE BLOOD COUNT 8.2 K/mm3 (4.0-10.0)
[2024-06-22 23:20] LABS: INR 1.27 (0.83-1.09); PROTHROMBIN TIME (PATIENT) 14.2 SEC (9.7-13.0)
[2024-06-22 23:22] LABS: ACTIVATED PTT 19.3 SECONDS (25.2-36.5)
[2024-06-22 23:40] LABS: CHLORIDE 107 mmol/L (98-107); SODIUM 138 mmol/L (136-145)
[2024-06-22 23:42] LABS: CALCIUM 9.2 mg/dL (8.5-10.1)
[2024-06-22 23:43] LABS: ALBUMIN 3.6 g/dl (3.4-5.0); BLOOD UREA NITROGEN 31.5 mg/dL (7-18); CO2 26 mmol/L (21-32); GLUCOSE,RANDOM 129 mg/dL (74-106)
[2024-06-22 23:45] LABS: ANION GAP 6 mmol/L (4-13); POTASSIUM 6.7 mmol/L (3.5-5.1)
[2024-06-22 23:46] LABS: CREATININE 1.2 mg/dL (0.55-1.3); SGOT/AST 73 U/L (15-37); SGPT/ALT 32 U/L (13-61)
[2024-06-22 23:47] LABS: BILIRUBIN,TOTAL 1.3 mg/dL (0.2-1); TOT PROT 7.8 g/dl (6.4-8.2)
[2024-06-22 23:49] LABS: ALK PHOS 82 U/L (45-117)
[2024-06-23] MEDS ORDERED: POTASSIUM CHLORIDE ORAL LIQUID 20 MEQ/15 ML ONE (00:16)
[2024-06-23 00:30] LABS: ERYTHROCYTE SEDIMENTATION RATE 44 mm/hr (0-30)
[2024-06-23 01:13] LABS: POTASSIUM 5.8 mmol/L (3.5-5.1)
[2024-06-23 01:15] LABS: BLOOD UREA NITROGEN 30.5 mg/dL (7-18)
[2024-06-23] MEDS ORDERED: ACETAMINOPHEN 325 MG TABLET (FP) PO PRN (06:05)
[2024-06-23] MEDS: sitaGLIPtin PHOSPHATE 50 MG TABLET PO SCH (06:48)
[2024-06-23] MEDS: glyBURIDE 2.5 MG TABLET PO SCH (06:48)
[2024-06-23] MEDS: EMPAGLIFLOZIN (JARDIANCE) 25 MG TABLET PO SCH (06:49)
[2024-06-23 07:40] LABS: BASO % 0.9 % (0-2.0); EOS % 4.5 % (0-4.5); HEMATOCRIT 34.4 % (32.4-45.2); HEMOGLOBIN 11.3 GM/dL (10.7-15.3); LYMPH % 15.2 % (8-40); MCH 30.2 pg (25.7-33.7); MEAN CELL VOLUME 91.6 fl (80-96); MEAN PLT VOLUME 7.4 fl (7.5-11.1); MONO % 6.6 % (3.8-10.2); NEUT % 72.8 % (42.8-82.8); PLATELET COUNT 358 10^3/uL (134-434); POTASSIUM 4.1 mmol/L (3.5-5.1); RBC 3.76 M/mm3 (3.60-5.2)
[2024-06-23 07:49] LABS: BLOOD UREA NITROGEN 25.3 mg/dL (7-18); CALCIUM 8.8 mg/dL (8.5-10.1); MAGNESIUM 1.9 mg/dL (1.8-2.4)
[2024-06-23 07:52] LABS: CREATININE 1.1 mg/dL (0.55-1.3)
[2024-06-23] MEDS: SACUBITRIL/VALSARTAN 24 MG-26 MG TABLET PO SCH (09:40)
[2024-06-23] MEDS: ASPIRIN 81 MG CHEWABLE TABLETS PO SCH (09:40)
[2024-06-23] MEDS: RIVAROXABAN 2.5 MG TABLET PO SCH (09:40)
[2024-06-23] MEDS: POLYETHYLENE GLYCOL (HEALTHYLAX) 3350 17 GM PACKET PO SCH (11:07)
[2024-06-23] MEDS: hydrALAZINE HCL 25 MG TABLET (FP) PO SCH (16:37)
[2024-06-23] MEDS: COLLAGENASE CLOSTRIDIUM HIST. 30 GRAMS TUBE TP SCH (18:38)
[2024-06-23] MEDS: ACETAMINOPHEN 1000 MG/100 ML BAG IVPB PRN (18:38)
[2024-06-23] MEDS: ATORVASTATIN CA 80 MG TABLET (FP) PO SCH (21:03)
[2024-06-24] MEDS: traMADol HCL 50 MG TABLET PO ONE (00:25)
[2024-06-24] MEDS: ACETAMINOPHEN 500 MG TABLET (FP) PO PRN (21:25)
[2024-06-25] MEDS: KETOROLAC TROMETHAMINE 30 MG/1 ML VIAL IVPUSH ONE (14:03)
[2024-06-25] MEDS: LIDOCAINE 5% TOPICAL PATCH TP SCH (14:04)
[2024-06-25] MEDS: FAMOTIDINE 20 MG/50 ML IVPB 20 MG/50 ML MG IVPB ONE (20:32)
[2024-06-25] MEDS: traMADol HCL 50 MG TABLET PO ONE (20:35)
[2024-06-25] MEDS: ACETAMINOPHEN 1000 MG/100 ML BAG IVPB ONE (20:35)
[2024-06-25] MEDS: LIDOCAINE PATCH REMOVAL MC SCH (21:08)
[2024-06-26] MEDS ORDERED: MELATONIN 5 MG TABLETS PO PRN (01:45)
[2024-06-26] MEDS: ACETAMINOPHEN 1000 MG/100 ML BAG IVPB ONE (03:16)
[2024-06-26] MEDS: traMADol HCL 50 MG TABLET PO ONE (03:16)
[2024-06-26 04:13] LABS: BASO % 0.9 % (0-2.0); EOS % 4.3 % (0-4.5); HEMATOCRIT 31.4 % (32.4-45.2); HEMOGLOBIN 10.7 GM/dL (10.7-15.3); LYMPH % 24.2 % (8-40); MCH 30.6 pg (25.7-33.7); MEAN CELL VOLUME 90.1 fl (80-96); MEAN PLT VOLUME 7.1 fl (7.5-11.1); MONO % 9.4 % (3.8-10.2); NEUT % 61.2 % (42.8-82.8); PLATELET COUNT 365 10^3/uL (134-434); RBC 3.49 M/mm3 (3.60-5.2); RDW 14.5 % (11.6-15.6); WHITE BLOOD COUNT 6.7 K/mm3 (4.0-10.0)
[2024-06-26 04:30] LABS: POTASSIUM 4.4 mmol/L (3.5-5.1)
[2024-06-26 04:32] LABS: MAGNESIUM 2.4 mg/dL (1.8-2.4)
[2024-06-26 04:35] LABS: CREATININE 1.5 mg/dL (0.55-1.3)
[2024-06-26 10:01] LABS: POTASSIUM 4.5 mmol/L (3.5-5.1)
[2024-06-26 10:03] LABS: ALBUMIN 3.2 g/dl (3.4-5.0); CALCIUM 8.9 mg/dL (8.5-10.1)
[2024-06-26 10:04] LABS: BLOOD UREA NITROGEN 29.7 mg/dL (7-18)
[2024-06-26 10:06] LABS: CREATININE 1.4 mg/dL (0.55-1.3)
[2024-06-26 10:08] LABS: BILIRUBIN,TOTAL 1.2 mg/dL (0.2-1); TOT PROT 6.3 g/dl (6.4-8.2)
[2024-06-27] MEDS ORDERED: HEPARIN NA (PORCINE) 5,000 UNITS/ML 1ML VIAL ONE (07:18)
[2024-06-27] MEDS ORDERED: LIDOCAINE HCL/PF 1% SDV 5ML VIAL ONE (07:19)
[2024-06-27] MEDS ORDERED: ONDANSETRON 4 MG/2 ML VIAL IVPUSH PRN ×2 (08:22→10:41)
[2024-06-27] MEDS: ceFAZolin SODIUM 1 GM VIAL IVPB ONE (08:30)
[2024-06-27] MEDS: LIDOCAINE HCL 1%, 10 MG/ML (20ML VIAL) NR ONE ×2 (08:46)
[2024-06-27] MEDS: HEPARIN NA (PORCINE) 5,000 UNITS/ML 1ML VIAL SQ ONE (09:00)
[2024-06-27] MEDS ORDERED: LACTATED RINGERS SOLUTION 1,000 ML IV SCH (10:41)
[2024-06-27] MEDS: LACTATED RINGERS SOLUTION 1,000 ML IV SCH (11:23)
[2024-06-27] MEDS: ACETAMINOPHEN 500 MG TABLET (FP) PO PRN (11:56)
[2024-06-27] MEDS: hydrALAZINE HCL 25 MG TABLET (FP) PO SCH (17:51)
[2024-06-27] MEDS: ATORVASTATIN CA 80 MG TABLET (FP) PO SCH (21:09)
[2024-06-27] MEDS: POLYETHYLENE GLYCOL (HEALTHYLAX) 3350 17 GM PACKET PO SCH (21:09)
[2024-06-27] MEDS: SACUBITRIL/VALSARTAN 24 MG-26 MG TABLET PO SCH (21:09)
[2024-06-27] MEDS: RIVAROXABAN 2.5 MG TABLET PO SCH (21:10)
[2024-06-27] MEDS: MELATONIN 5 MG TABLETS PO PRN (21:10)
[2024-06-27] MEDS: LIDOCAINE PATCH REMOVAL MC SCH (21:23)
[2024-06-28] MEDS: FAMOTIDINE 20 MG TABLET PO ONE (04:27)
[2024-06-28] MEDS: FAMOTIDINE 20 MG/50 ML IVPB 20 MG/50 ML MG IVPB ONE (05:39)
[2024-06-28] MEDS: EMPAGLIFLOZIN (JARDIANCE) 25 MG TABLET PO SCH (06:05)
[2024-06-28] MEDS: sitaGLIPtin PHOSPHATE 50 MG TABLET PO SCH (06:05)
[2024-06-28] MEDS: glyBURIDE 2.5 MG TABLET PO SCH (06:06)
[2024-06-28] MEDS: HYDROmorphone HCl 2 MG/ML VIAL IVPUSH ONE (08:58)
[2024-06-28] MEDS: ONDANSETRON 4 MG/2 ML VIAL IVPUSH PRN (09:00)
[2024-06-28] MEDS: ASPIRIN 81 MG CHEWABLE TABLETS PO SCH (10:10)
[2024-06-28] MEDS: LIDOCAINE 5% TOPICAL PATCH TP SCH (10:11)
[2024-06-28] MEDS: COLLAGENASE CLOSTRIDIUM HIST. 30 GRAMS TUBE TP SCH (10:12)
[2024-06-28] MEDS: PANTOPRAZOLE SODIUM 40 MG VIAL IVPUSH SCH (10:12)
[2024-06-28 11:48] LABS: BASO % 0.3 % (0-2.0); EOS % 4.6 % (0-4.5); HEMATOCRIT 28.9 % (32.4-45.2); HEMOGLOBIN 9.6 GM/dL (10.7-15.3); MCH 30.8 pg (25.7-33.7); MCHC 33.3 g/dl (32.0-36.0); MEAN CELL VOLUME 92.5 fl (80-96); MEAN PLT VOLUME 7.6 fl (7.5-11.1); MONO % 4.3 % (3.8-10.2); NEUT % 82.8 % (42.8-82.8); PLATELET COUNT 326 10^3/uL (134-434); RBC 3.12 M/mm3 (3.60-5.2); RDW 14.5 % (11.6-15.6); WHITE BLOOD COUNT 7.2 K/mm3 (4.0-10.0)
[2024-06-28 12:07] LABS: POTASSIUM 4.5 mmol/L (3.5-5.1)
[2024-06-28 12:09] LABS: CALCIUM 8.5 mg/dL (8.5-10.1)
[2024-06-28 12:10] LABS: BLOOD UREA NITROGEN 29.3 mg/dL (7-18)
[2024-06-28 12:13] LABS: CREATININE 1.5 mg/dL (0.55-1.3)
[2024-06-28 12:15] LABS: BILIRUBIN,TOTAL 1.3 mg/dL (0.2-1); TOT PROT 5.7 g/dl (6.4-8.2)
[2024-06-28] MEDS: traMADol HCL 50 MG TABLET PO PRN (21:37)
[2024-06-29 08:56] LABS: BASO % 0.4 % (0-2.0); EOS % 9.7 % (0-4.5); HEMATOCRIT 27.8 % (32.4-45.2); HEMOGLOBIN 9.2 GM/dL (10.7-15.3); MCH 30.5 pg (25.7-33.7); MCHC 33.1 g/dl (32.0-36.0); MEAN PLT VOLUME 7.6 fl (7.5-11.1); MONO % 8.2 % (3.8-10.2); NEUT % 67.7 % (42.8-82.8); PLATELET COUNT 320 10^3/uL (134-434); RBC 3.03 M/mm3 (3.60-5.2); RDW 14.6 % (11.6-15.6); WHITE BLOOD COUNT 6.6 K/mm3 (4.0-10.0)
[2024-06-29 09:14] LABS: POTASSIUM 4.7 mmol/L (3.5-5.1)
[2024-06-29 09:22] LABS: CALCIUM 8.7 mg/dL (8.5-10.1)
[2024-06-29 09:23] LABS: BLOOD UREA NITROGEN 29.9 mg/dL (7-18)
[2024-06-29 09:26] LABS: CREATININE 1.5 mg/dL (0.55-1.3)
[2024-06-29 09:27] LABS: BILIRUBIN,TOTAL 1.1 mg/dL (0.2-1)
[2024-06-29 09:28] LABS: TOT PROT 5.6 g/dl (6.4-8.2)
[2024-06-30] MEDS: PANTOPRAZOLE 40 MG TABLET PO SCH (09:42)
[2024-06-30] MEDS: traMADol HCL 50 MG TABLET PO PRN (09:42)
[2024-06-30] MEDS: GABAPENTIN 300 MG CAPSULE PO SCH (09:44)
[2024-06-30] MEDS ORDERED: GABAPENTIN 300 MG CAPSULE PO SCH (10:00)
[2024-06-30 16:53] VITALS: BMI 24.0
[2024-07-02] MEDS ORDERED: FENTANYL PATCH WASTE TD PRN (10:58)
[2024-07-02 11:40] LABS: BASO % 0.9 % (0-2.0); EOS % 5.8 % (0-4.5); HEMATOCRIT 26.2 % (32.4-45.2); HEMOGLOBIN 8.7 GM/dL (10.7-15.3); LYMPH % 19.1 % (8-40); MCH 30.5 pg (25.7-33.7); MCHC 33.3 g/dl (32.0-36.0); MEAN CELL VOLUME 91.5 fl (80-96); MONO % 10.6 % (3.8-10.2); NEUT % 63.6 % (42.8-82.8); PLATELET COUNT 300 10^3/uL (134-434); RBC 2.86 M/mm3 (3.60-5.2); RDW 14.8 % (11.6-15.6); WHITE BLOOD COUNT 6.2 K/mm3 (4.0-10.0)
[2024-07-02] MEDS: FUROSEMIDE 20 MG TABLET (FP) PO SCH (12:04)
[2024-07-02] MEDS: fentaNYL 12mcg/hr PATCH.TD72 TD SCH (12:04)
[2024-07-02 12:30] LABS: BLOOD UREA NITROGEN 39.5 mg/dL (7-18); CALCIUM 8.5 mg/dL (8.5-10.1)
[2024-07-02 12:37] LABS: BILIRUBIN,TOTAL 1.1 mg/dL (0.2-1); CREATININE 1.5 mg/dL (0.55-1.3); TOT PROT 5.9 g/dl (6.4-8.2)
[2024-07-03 06:17] LABS: HEMATOCRIT 25.8 % (32.4-45.2); HEMOGLOBIN 8.7 GM/dL (10.7-15.3); MCH 30.8 pg (25.7-33.7); MCHC 33.8 g/dl (32.0-36.0); MEAN CELL VOLUME 91.1 fl (80-96); MEAN PLT VOLUME 7.1 fl (7.5-11.1); PLATELET COUNT 284 10^3/uL (134-434); RBC 2.83 M/mm3 (3.60-5.2); RDW 14.4 % (11.6-15.6); WHITE BLOOD COUNT 6.4 K/mm3 (4.0-10.0)
[2024-07-03 06:36] LABS: POTASSIUM 4.8 mmol/L (3.5-5.1)
[2024-07-03 06:38] LABS: CALCIUM 8.5 mg/dL (8.5-10.1)
[2024-07-03 06:39] LABS: BLOOD UREA NITROGEN 36.7 mg/dL (7-18)
[2024-07-03 06:42] LABS: CREATININE 1.3 mg/dL (0.55-1.3)
[2024-07-03 06:44] LABS: TOT PROT 5.7 g/dl (6.4-8.2)
[2024-07-03 18:18] VITALS: BP 106/61; PULSE 104; RESP 16; TEMP 98.8
== END 2024-07-03 19:26 | DRG 253 ==
LOC: JER 20:55 → JERBED 06-23 01:33 → J4S 06-23 04:10 → OBSVTOIN 06-26 11:32
PROVIDERS: ADMIT Family Medicine; ATTEND Family Medicine
PROC: 047N3ZZ Dilation of Left Popliteal Artery, Percutaneous Approach (ICD-10-PCS; 2024-06-27)
PROC: 047Q3ZZ Dilation of Left Anterior Tibial Artery, Percutaneous Approach (ICD-10-PCS; 2024-06-27)
PROC: 047U3ZZ Dilation of Left Peroneal Artery, Percutaneous Approach (ICD-10-PCS; 2024-06-27)
PROC: 047L3ZZ Dilation of Left Femoral Artery, Percutaneous Approach (ICD-10-PCS; principal; 2024-06-27 08:00)
DX: E11.51 Type 2 diabetes mellitus with diabetic peripheral angiopathy without gangrene (principal); I13.0 Hypertensive heart and chronic kidney disease with heart failure and stage 1 through stage 4 chronic kidney disease, or unspecified chronic kidney disease; L97.518 Non-pressure chronic ulcer of other part of right foot with other specified severity; I25.10 Atherosclerotic heart disease of native coronary artery without angina pectoris; E11.22 Type 2 diabetes mellitus with diabetic chronic kidney disease; N18.9 Chronic kidney disease, unspecified; I50.9 Heart failure, unspecified; R26.2 Difficulty in walking, not elsewhere classified; I25.2 Old myocardial infarction; E11.621 Type 2 diabetes mellitus with foot ulcer; M25.562 Pain in left knee; I70.1 Atherosclerosis of renal artery; R10.13 Epigastric pain; I70.298 Other atherosclerosis of native arteries of extremities, other extremity
CPT/HCPCS: 36415; 73502-TC-LT-FY; 73630-TC-RT-FY; 76000-TC-FY; 80048; 80053; 82150; 82962; 83690; 83735; 84100; 84484; 85025; 85027; 85610; 85651; 85730; 86140; 86850; 86900; 86901; 87081; 93005; 93010; 93306-TC; 93922; 93925-TC; 94760; 97116-GP; 97161-GP; 99285-25; C1760; C1769; G0378; J0131; J1644

== ENCOUNTER 2024-10-14 10:42 | Inpatient (IN) | payer OTHER ==
[2024-10-14] MEDS ORDERED: ACETAMINOPHEN INJECTION 100 ML ONE (11:43)
[2024-10-14] MEDS: ACETAMINOPHEN 1000 MG/100 ML BAG IVPB ONE (12:33)
[2024-10-14 12:46] LABS: INR 1.16 (0.83-1.09); PROTHROMBIN TIME (PATIENT) 12.8 SEC (9.7-13.0)
[2024-10-14 12:49] LABS: ACTIVATED PTT 33.5 SECONDS (25.2-36.5)
[2024-10-14 13:10] LABS: EOS % 5.3 % (0-4.5); HEMATOCRIT 35.8 % (32.4-45.2); HEMOGLOBIN 11.8 GM/dL (10.7-15.3); LYMPH % 22.9 % (8-40); MCH 29.8 pg (25.7-33.7); MCHC 32.9 g/dl (32.0-36.0); MEAN CELL VOLUME 90.7 fl (80-96); MEAN PLT VOLUME 7.1 fl (7.5-11.1); MONO % 8.8 % (3.8-10.2); PLATELET COUNT 292 10^3/uL (134-434); RBC 3.95 M/mm3 (3.60-5.2); RDW 14.3 % (11.6-15.6); WHITE BLOOD COUNT 5.7 K/mm3 (4.0-10.0)
[2024-10-14 13:23] LABS: CHLORIDE 108 mmol/L (98-107); POTASSIUM 4.5 mmol/L (3.5-5.1); SODIUM 140 mmol/L (136-145)
[2024-10-14 13:26] LABS: ANION GAP 7 mmol/L (4-13); BLOOD UREA NITROGEN 38.4 mg/dL (7-18); CO2 26 mmol/L (21-32); GLUCOSE,RANDOM 175 mg/dL (74-106)
[2024-10-14 13:29] LABS: CREATININE 1.3 mg/dL (0.55-1.3); SGOT/AST 13 U/L (15-37); SGPT/ALT 18 U/L (13-61)
[2024-10-14 13:30] LABS: BILIRUBIN,TOTAL 0.8 mg/dL (0.2-1); TOT PROT 8.2 g/dl (6.4-8.2)
[2024-10-14 13:31] LABS: ALK PHOS 92 U/L (45-117)
[2024-10-14] MEDS: INSULIN ASPART SLIDING SCALE (NOVOLOG) 1 VIAL SQ SCH (17:50)
[2024-10-14] MEDS: ACETAMINOPHEN 325 MG TABLET (FP) PO PRN (19:57)
[2024-10-14] MEDS: hydrALAZINE HCL 25 MG TABLET (FP) PO SCH (21:03)
[2024-10-14] MEDS: SACUBITRIL/VALSARTAN 24 MG-26 MG TABLET PO SCH (21:14)
[2024-10-14] MEDS: ATORVASTATIN CA 40 MG TABLET (FP) PO SCH (21:14)
[2024-10-14] MEDS: GABAPENTIN 300 MG CAPSULE PO SCH (21:14)
[2024-10-14] MEDS: RIVAROXABAN 2.5 MG TABLET PO SCH (21:31)
[2024-10-14] MEDS ORDERED: hydrALAZINE HCL 25 MG TABLET (FP) PO SCH (22:00)
[2024-10-15] MEDS: EMPAGLIFLOZIN (JARDIANCE) 25 MG TABLET PO SCH (06:07)
[2024-10-15] MEDS: glyBURIDE 2.5 MG TABLET PO SCH (06:07)
[2024-10-15] MEDS: sitaGLIPtin PHOSPHATE 50 MG TABLET PO SCH (06:08)
[2024-10-15] MEDS: CEFTRIAXONE 1 G/50 ML PREMIX 50 ML IVPB SCH (09:32)
[2024-10-15] MEDS: ASPIRIN COATED 81 MG TABLET.EC PO SCH (09:32)
[2024-10-15] MEDS: POLYETHYLENE GLYCOL (HEALTHYLAX) 3350 17 GM PACKET PO SCH (09:32)
[2024-10-15] MEDS: PANTOPRAZOLE SOD 40 MG SUSPENSION PACKET PO SCH (09:32)
[2024-10-15] MEDS: metoPROLOL SUCCINATE 25 MG TAB.SR.24H (FP) PO SCH (09:33)
[2024-10-15] MEDS: EZETIMIBE 10 MG TABLET (FP) PO SCH (09:33)
[2024-10-15] MEDS ORDERED: EMPAGLIFLOZIN (JARDIANCE) 10 MG TABLET PO SCH (10:00)
[2024-10-15] MEDS ORDERED: metoPROLOL SUCCINATE 25 MG TAB.SR.24H (FP) PO SCH (10:00)
[2024-10-15] MEDS: SODIUM CHLORIDE 0.45% 1,000 ML IV SCH (11:48)
[2024-10-15] MEDS: AMPICILLIN NA/SULBACTAM NA 3 GM in SODIUM CHLORIDE 100 ML IVPB SCH (12:27)
[2024-10-15] MEDS: COLLAGENASE CLOSTRIDIUM HIST. 30 GRAMS TUBE TP SCH ×2 (17:34→18:16)
[2024-10-16] MEDS ORDERED: SODIUM CHLORIDE 0.45% 1,000 ML IV SCH (09:00)
[2024-10-16 09:10] LABS: BASO % 0.7 % (0-2.0); EOS % 7.6 % (0-4.5); HEMATOCRIT 31.9 % (32.4-45.2); HEMOGLOBIN 10.4 GM/dL (10.7-15.3); LYMPH % 14.8 % (8-40); MCH 29.7 pg (25.7-33.7); MCHC 32.5 g/dl (32.0-36.0); MEAN CELL VOLUME 91.6 fl (80-96); MEAN PLT VOLUME 7.1 fl (7.5-11.1); MONO % 9.3 % (3.8-10.2); NEUT % 67.6 % (42.8-82.8); PLATELET COUNT 273 10^3/uL (134-434); RBC 3.48 M/mm3 (3.60-5.2); RDW 14.4 % (11.6-15.6); WHITE BLOOD COUNT 5.3 K/mm3 (4.0-10.0)
[2024-10-16 09:59] LABS: POTASSIUM 4.7 mmol/L (3.5-5.1)
[2024-10-16] MEDS ORDERED: CEFTRIAXONE 1 G/50 ML PREMIX 50 ML IVPB SCH (10:00)
[2024-10-16 10:05] LABS: CALCIUM 8.6 mg/dL (8.5-10.1)
[2024-10-16 10:09] LABS: CREATININE 1.4 mg/dL (0.55-1.3)
[2024-10-16 14:04] VITALS: BMI 25.9
[2024-10-16] MEDS ORDERED: CEFTRIAXONE 2 GM-D5W BAG 2 GM/50 ML BAG IVPB SCH (16:00)
[2024-10-16] MEDS: VANCOMYCIN HCL IN 5 % DEXTROSE 1,250 MG/250 ML BAG IV SCH (16:32)
[2024-10-16] MEDS: AMINO ACIDS/PROTEIN HYDROLYS 30 ML LIQUID.PKT PO SCH (16:33)
[2024-10-16] MEDS ORDERED: AMPICILLIN NA/SULBACTAM NA 3 GM in SODIUM CHLORIDE 100 ML IVPB SCH (21:01)
[2024-10-17 08:58] LABS: INR 1.23 (0.83-1.09); PROTHROMBIN TIME (PATIENT) 13.4 SEC (9.7-13.0)
[2024-10-17 09:01] LABS: ACTIVATED PTT 31.5 SECONDS (25.2-36.5)
[2024-10-17] MEDS: ZINC SULFATE 220 MG CAPSULE (FP) PO SCH (10:11)
[2024-10-17] MEDS: ASCORBIC ACID 500 MG TABLET (FP) PO SCH (10:15)
[2024-10-17] MEDS ORDERED: HEPARIN NA (PORCINE) 5,000 UNITS/ML 1ML VIAL ONE ×5 (11:17→13:51)
[2024-10-17] MEDS ORDERED: LIDOCAINE HCL 1%, 10 MG/ML (20ML VIAL) ONE (11:17)
[2024-10-17] MEDS ORDERED: PAPAVERINE HCL 30 MG/1 ML 10 ML VIAL NR ONE (12:19)
[2024-10-17] MEDS ORDERED: MIDAZOLAM HCL 2 MG/2 ML SINGLE DOSE VIAL ONE (12:53)
[2024-10-17] MEDS ORDERED: DEXAMETHASONE SOD PHOSPHATE 4 MG/1 ML VIAL ONE (12:56)
[2024-10-17] MEDS ORDERED: PROPOFOL 20 ML ONE ×2 (12:58→14:00)
[2024-10-17] MEDS ORDERED: LABETALOL HCL 20 MG/4 ML VIAL ONE (13:08)
[2024-10-17] MEDS ORDERED: ceFAZolin SODIUM 1 GM VIAL ONE (13:09)
[2024-10-17] MEDS: LIDOCAINE HCL 1%, 10 MG/ML (20ML VIAL) NR ONE ×2 (13:10)
[2024-10-17] MEDS: ceFAZolin 2 GRAM PREMIX BAG IVPB ONE (13:10)
[2024-10-17] MEDS: HEPARIN NA (PORCINE) 5,000 UNITS/ML 1ML VIAL SQ ONE ×2 (13:30)
[2024-10-17] MEDS: ACETAMINOPHEN 325 MG TABLET (FP) PO PRN (17:29)
[2024-10-17] MEDS: AMINO ACIDS/PROTEIN HYDROLYS 30 ML LIQUID.PKT PO SCH (17:29)
[2024-10-17] MEDS: INSULIN ASPART SLIDING SCALE (NOVOLOG) 1 VIAL SQ SCH (17:30)
[2024-10-17] MEDS: VANCOMYCIN HCL IN 5 % DEXTROSE 1,250 MG/250 ML BAG IV SCH (19:40)
[2024-10-17] MEDS: ATORVASTATIN CA 40 MG TABLET (FP) PO SCH (21:12)
[2024-10-17] MEDS: GABAPENTIN 300 MG CAPSULE PO SCH (21:12)
[2024-10-17] MEDS: RIVAROXABAN 2.5 MG TABLET PO SCH (21:12)
[2024-10-17] MEDS: hydrALAZINE HCL 25 MG TABLET (FP) PO SCH (21:12)
[2024-10-17] MEDS: SACUBITRIL/VALSARTAN 24 MG-26 MG TABLET PO SCH (21:12)
[2024-10-18] MEDS: SODIUM CHLORIDE 0.45% 1,000 ML IV SCH (06:05)
[2024-10-18 10:21] LABS: POTASSIUM 4.4 mmol/L (3.5-5.1)
[2024-10-18 10:23] LABS: CALCIUM 8.6 mg/dL (8.5-10.1)
[2024-10-18 10:26] LABS: CREATININE 1.5 mg/dL (0.55-1.3)
[2024-10-18 10:28] LABS: BILIRUBIN,TOTAL 0.8 mg/dL (0.2-1); TOT PROT 6.2 g/dl (6.4-8.2)
[2024-10-18] MEDS: PANTOPRAZOLE SOD 40 MG SUSPENSION PACKET PO SCH (10:29)
[2024-10-18] MEDS: metoPROLOL SUCCINATE 25 MG TAB.SR.24H (FP) PO SCH (10:29)
[2024-10-18] MEDS: ASCORBIC ACID 500 MG TABLET (FP) PO SCH (10:29)
[2024-10-18] MEDS: ASPIRIN COATED 81 MG TABLET.EC PO SCH (10:29)
[2024-10-18] MEDS: ZINC SULFATE 220 MG CAPSULE (FP) PO SCH (10:29)
[2024-10-18] MEDS: POLYETHYLENE GLYCOL (HEALTHYLAX) 3350 17 GM PACKET PO SCH (10:30)
[2024-10-18] MEDS: COLLAGENASE CLOSTRIDIUM HIST. 30 GRAMS TUBE TP SCH (10:31)
[2024-10-18 10:50] LABS: BASO % 0.6 % (0-2.0); EOS % 0.1 % (0-4.5); HEMATOCRIT 30.9 % (32.4-45.2); HEMOGLOBIN 10.3 GM/dL (10.7-15.3); LYMPH % 9.6 % (8-40); MCH 30.3 pg (25.7-33.7); MCHC 33.2 g/dl (32.0-36.0); MEAN CELL VOLUME 91.2 fl (80-96); MEAN PLT VOLUME 7.9 fl (7.5-11.1); MONO % 6.7 % (3.8-10.2); PLATELET COUNT 268 10^3/uL (134-434); RBC 3.39 M/mm3 (3.60-5.2); RDW 14.4 % (11.6-15.6); WHITE BLOOD COUNT 8.9 K/mm3 (4.0-10.0)
[2024-10-18] MEDS: EZETIMIBE 10 MG TABLET (FP) PO SCH (11:18)
[2024-10-18] MEDS ORDERED: INSULIN ASPART SLIDING SCALE (NOVOLOG) 1 VIAL SQ ONE (11:21)
[2024-10-19 10:53] LABS: POTASSIUM 4.7 mmol/L (3.5-5.1)
[2024-10-19 10:54] LABS: CALCIUM 8.4 mg/dL (8.5-10.1)
[2024-10-19 10:55] LABS: ALBUMIN 3.1 g/dl (3.4-5.0); BLOOD UREA NITROGEN 49.9 mg/dL (7-18)
[2024-10-19 10:58] LABS: CREATININE 1.3 mg/dL (0.55-1.3)
[2024-10-19 11:00] LABS: BILIRUBIN,TOTAL 0.7 mg/dL (0.2-1); TOT PROT 6.2 g/dl (6.4-8.2)
[2024-10-19] MEDS: CEFTRIAXONE 1 G/50 ML PREMIX 50 ML IVPB SCH (13:41)
[2024-10-19] MEDS: LOPERAMIDE HCL 2 MG CAPSULE PO SCH (15:21)
[2024-10-19] MEDS: DOXYCYCLINE HYCLATE 100 MG CAPSULE PO SCH (17:50)
[2024-10-19] MEDS: VANCOMYCIN ORAL SOLUTION 125 MG/2.5 ML PO SCH (18:36)
[2024-10-20] MEDS: glyBURIDE 2.5 MG TABLET PO SCH (06:09)
[2024-10-20] MEDS: sitaGLIPtin PHOSPHATE 50 MG TABLET PO SCH (06:58)
[2024-10-21] MEDS: traMADol HCL 50 MG TABLET PO ONE (02:55)
[2024-10-21 09:22] LABS: POTASSIUM 4.4 mmol/L (3.5-5.1)
[2024-10-21 09:30] LABS: CALCIUM 8.5 mg/dL (8.5-10.1)
[2024-10-21 09:31] LABS: ALBUMIN 2.8 g/dl (3.4-5.0)
[2024-10-21 09:33] LABS: BLOOD UREA NITROGEN 36.7 mg/dL (7-18); CREATININE 1.1 mg/dL (0.55-1.3)
[2024-10-21 09:35] LABS: BILIRUBIN,TOTAL 0.7 mg/dL (0.2-1); TOT PROT 5.7 g/dl (6.4-8.2)
[2024-10-23] MEDS ORDERED: MIDAZOLAM HCL 2 MG/2 ML SINGLE DOSE VIAL ONE (12:49)
[2024-10-23] MEDS ORDERED: LIDOCAINE HCL 1%, 10 MG/ML (20ML VIAL) ONE (12:55)
[2024-10-23] MEDS: LIDOCAINE HCL 1%, 10 MG/ML (20ML VIAL) INF ONE (12:59)
[2024-10-23] MEDS ORDERED: ONDANSETRON 4 MG/2 ML VIAL IVPUSH PRN ×2 (13:29→13:34)
[2024-10-23] MEDS ORDERED: LACTATED RINGERS SOLUTION 1,000 ML IV SCH ×2 (13:30→13:34)
[2024-10-23] MEDS: SODIUM CHLORIDE 0.45% 1,000 ML IV SCH (14:00)
[2024-10-23] MEDS: ACETAMINOPHEN 325 MG TABLET (FP) PO PRN (15:24)
[2024-10-23] MEDS: GABAPENTIN 300 MG CAPSULE PO SCH (15:25)
[2024-10-23] MEDS: HYDROmorphone HCL CARPU-JECT 2 MG/1 ML DISP.SYRIN IVPUSH ONE (16:35)
[2024-10-23] MEDS: INSULIN ASPART SLIDING SCALE (NOVOLOG) 1 VIAL SQ SCH (18:35)
[2024-10-23] MEDS: AMINO ACIDS/PROTEIN HYDROLYS 30 ML LIQUID.PKT PO SCH (18:38)
[2024-10-23] MEDS: ATORVASTATIN CA 40 MG TABLET (FP) PO SCH (21:27)
[2024-10-23] MEDS: RIVAROXABAN 2.5 MG TABLET PO SCH (21:27)
[2024-10-23] MEDS: hydrALAZINE HCL 25 MG TABLET (FP) PO SCH (21:34)
[2024-10-23] MEDS: SACUBITRIL/VALSARTAN 24 MG-26 MG TABLET PO SCH (21:35)
[2024-10-24] MEDS: traMADol HCL 50 MG TABLET PO ONE (02:46)
[2024-10-24] MEDS: sitaGLIPtin PHOSPHATE 50 MG TABLET PO SCH (06:23)
[2024-10-24] MEDS: glyBURIDE 2.5 MG TABLET PO SCH (06:24)
[2024-10-24] MEDS: ASPIRIN COATED 81 MG TABLET.EC PO SCH (10:22)
[2024-10-24] MEDS: ASCORBIC ACID 500 MG TABLET (FP) PO SCH (10:22)
[2024-10-24] MEDS: ZINC SULFATE 220 MG CAPSULE (FP) PO SCH (10:22)
[2024-10-24] MEDS: metoPROLOL SUCCINATE 25 MG TAB.SR.24H (FP) PO SCH (10:22)
[2024-10-24] MEDS: PANTOPRAZOLE SOD 40 MG SUSPENSION PACKET PO SCH (10:23)
[2024-10-24] MEDS: EZETIMIBE 10 MG TABLET (FP) PO SCH (10:23)
[2024-10-24] MEDS: COLLAGENASE CLOSTRIDIUM HIST. 30 GRAMS TUBE TP SCH (10:39)
[2024-10-24 22:30] VITALS: RESP 18
[2024-10-25] MEDS: traMADol HCL 50 MG TABLET PO ONE (02:38)
[2024-10-25] MEDS ORDERED: INSULIN (LEVEMIR) 100 UNITS/ML UNITS SQ ONE (07:09)
[2024-10-25] MEDS: COLLAGENASE CLOSTRIDIUM HIST. 30 GRAMS TUBE TP SCH (10:04)
[2024-10-25] MEDS: oxyCODONE HCL 5 MG TABLET PO PRN (12:24)
[2024-10-25 22:54] VITALS: BP 179/55; PULSE 67; TEMP 97.7
== END 2024-10-25 22:46 | DRG 271 ==
LOC: JER 10:42 → JERBED 13:59 → J7W 17:32 → J8W 10-18 15:25
PROVIDERS: ADMIT Family Medicine; ATTEND Family Medicine
PROC: 04CM3ZZ Extirpation of Matter from Right Popliteal Artery, Percutaneous Approach (ICD-10-PCS; 2024-10-17)
PROC: 04CT3ZZ Extirpation of Matter from Right Peroneal Artery, Percutaneous Approach (ICD-10-PCS; 2024-10-17)
PROC: 04CK3ZZ Extirpation of Matter from Right Femoral Artery, Percutaneous Approach (ICD-10-PCS; principal; 2024-10-17 14:00)
PROC: 0QBN0ZX Excision of Right Metatarsal, Open Approach, Diagnostic (ICD-10-PCS; 2024-10-23)
PROC: 05HY33Z Insertion of Infusion Device into Upper Vein, Percutaneous Approach (ICD-10-PCS; 2024-10-25)
DX: E11.51 Type 2 diabetes mellitus with diabetic peripheral angiopathy without gangrene (principal); I13.0 Hypertensive heart and chronic kidney disease with heart failure and stage 1 through stage 4 chronic kidney disease, or unspecified chronic kidney disease; R78.81 Bacteremia; L03.115 Cellulitis of right lower limb; L03.116 Cellulitis of left lower limb; M86.9 Osteomyelitis, unspecified; E11.621 Type 2 diabetes mellitus with foot ulcer; L97.509 Non-pressure chronic ulcer of other part of unspecified foot with unspecified severity; E78.5 Hyperlipidemia, unspecified; I25.10 Atherosclerotic heart disease of native coronary artery without angina pectoris; N18.9 Chronic kidney disease, unspecified; I50.9 Heart failure, unspecified
CPT/HCPCS: 36415; 36569; 73630-TC-LT; 73630-TC-RT-FY; 76000-TC-FY; 76775-TC; 78315-TC; 80048; 80053; 82550; 82570; 82962; 83036; 84300; 85025; 85610; 85730; 86140; 86850; 86900; 86901; 86922; 87040; 87070; 87075; 87186; 87205; 93005; 93010; 94760; 97116-GP; 97162-GP; 99285-25; A9503; C1760; C1769; C1894; J0131; J0878; J1644